=== PATIENT | male | born 1960 | race Caucasian/White ===

== ENCOUNTER 2019-01-23 19:56 | Inpatient (IN) | payer SELFPAY ==
[2019-01-23] MEDS ORDERED: Nicotine 14 MG PATCH TOP SCH (20:45)
[2019-01-23] MEDS ORDERED: Albuterol Sulfate 2.5 mg/3 ml Neb NEB PRN (23:31)
[2019-01-23] MEDS ORDERED: Albuterol Sulfate 2.5 mg/3 ml Neb ONE (23:36)
[2019-01-24 02:30] VITALS: BMI 28.3
[2019-01-24] MEDS ORDERED: Acetaminophen 325 MG TAB PO PRN (07:17)
[2019-01-24] MEDS ORDERED: HYDROcodone/Acetaminophen 7.5/325 mg Tablet PO PRN (07:17)
[2019-01-24] MEDS ORDERED: Ondansetron PF 4 MG/2 ML Vial IVP PRN (07:17)
[2019-01-24] MEDS ORDERED: Bisacodyl 5 MG TAB PO PRN (07:17)
[2019-01-24] MEDS ORDERED: Bisacodyl 10 MG SUPP PR PRN (07:17)
[2019-01-24] MEDS ORDERED: Calcium Carbonate 500 MG ChewTAB PO PRN (07:17)
[2019-01-24] MEDS ORDERED: HYDROcodone/Acetaminophen 5/325 mg Tablet PO PRN (07:17)
[2019-01-24] MEDS ORDERED: Ondansetron ODT 4 MG TAB PO PRN (07:17)
--- NOTE | 2019-01-24 08:34 | ULT ---
BILATERAL CAROTID DUPLEX ULTRASOUND: HISTORY: CVA TECHNIQUE: Grayscale, color-flow and spectral Doppler ultrasound imaging of the extracranial carotid artery syst ems was performed bilaterally. FINDINGS: Mild plaque formation. The peak systolic velocity in the right ICA measures 66 cm/s. The peak systolic velocity in the left ICA measures 57 cm/s. Vertebral flow: antegrade, bilaterally. IMPRESSION: No hemodynamically significant stenosis of Both ICAs.
[2019-01-24] MEDS: Famotidine 20 MG TAB PO SCH ×2 (08:36→20:06)
[2019-01-24] MEDS ORDERED: FLU VACC QS2019-20(6MOS UP)/PF 60 MCG/0.5 ML SYRINGE IM ONE (09:00)
--- NOTE | 2019-01-24 11:50 | MRI ---
MRI BRAIN WITH AND WITHOUT CONTRAST: INDICATIONS: Abnormal CT. Dysarthria. CT revealed abnormal white matter hypointensities, atypical for this aged patient. FINDINGS: The ventricles have normal size and position. There are diffuse white matter hyperintensities seen in the periventricular and deep white matter on FLAIR and T2 sequences. Some of these lesions are prominent with one in the left subcortical frontal lobe, measuring up to 1.7 cm. Paraventricular lesions are somewhat confluent with numerous other scat tered white matter hyperintensities. On the T1, many of these lesions show low signal, which would suggest a more chronic process. On T1 post contrast there is peripheral enhancement of the larger lesion in the left cerebral hemisph ere. Diffusion weighted images show T2 shine-through on most of these lesions. There may be some mild restricted diffusion peripherally of the larger lesion in the left cerebral hemisphere. IMPRESSION: Diffuse white matter abnormality. Peripheral enhancement is seen in the larger lesion in the left cer ebral hemisphere. T1 images suggest chronic lesions. A demyelinating process would be suspected. Mult iple sclerosis is favored, although unusual that this has not been previously diagnosed in a 58-year- old patient. Recommend neurologic consultation. Other demyelinating processes must be considered. PHOEN[place] M (acute disseminated encephalomyelitis) is a consideration if there is a history of a recent viral i nfection or vaccination. Infectious etiologies such as Lyme disease are considerations. If the patien t is immunocompromised other considerations such as PML (progressive multifocal leukoencephalopathy) might be considered. POS: [facility]
[2019-01-24] MEDS ORDERED: Labetalol HCl 100 MG/20 ML VIAL SLOW IVP PRN (13:18)
[2019-01-24] MEDS ORDERED: Docusate 100 MG CAP PO PRN (13:18)
[2019-01-24] MEDS ORDERED: hydrALAZINE 20 MG/ML VIAL SLOW IVP PRN (13:18)
[2019-01-24] MEDS ORDERED: diphenhydrAMINE 25 MG CAP PO PRN (13:18)
[2019-01-24] MEDS ORDERED: Benzonatate 100 MG CAP PO PRN (13:18)
[2019-01-24] MEDS ORDERED: Lisinopril 5 MG TAB PO SCH (13:30)
[2019-01-24] MEDS ORDERED: Amlodipine 5 MG TAB PO SCH (13:45)
[2019-01-24 14:29] LABS: Hemoglobin A1c 5.3 % (4.0-6.0)
--- NOTE | 2019-01-24 15:54 | CT ---
CT OF CHEST NONCONTRAST: 01/24/19 INDICATIONS: Short of breath with cough. FINDINGS: No evidence of lobar consolidation, pleural effusion, or pneumothorax. There regional soft tissues in cluding vasculature and lymph nodes are incompletely assessed on the basis of noncontrast technique. There is ectasia of the thoracic aorta near the junction of the ascending thoracic aorta and the arch . There is mild vascular calcification. Incidental note of peripherally calcified cholelithiasis wit hin a contracted gallbladder. Scattered osseous degenerative changes are present. IMPRESSION: 1. No focal consolidation. 2. Incidental note of cholelithiasis. 3. Ectasia of the thoracic aorta near the junction of the ascending thoracic aorta and the aorti c arch, with luminal diameter of approximately 3.6 cm. POS: C
[2019-01-24] MEDS ORDERED: predniSONE 20 MG TAB PO SCH (17:00)
--- NOTE | 2019-01-24 17:19 | PDOC.HHP ---
Hospitalist HPI - History of Present Illness Trouble talking History of Present Illness: 58-year-old gentleman with no known past medical history who has not seen a doctor in greater than 10 years presents with one week of worsening dysarthria. Patient initially presenting to hospital with one week of worsening trouble speaking, was transferred to [facility] on 01/24 for higher level of care. Patient was CT scan of the brain that demonstrates multiple indeterminate lesions, recommending MRI with and without contrast for further evaluation. I find the patient on the medical unit with telemetry in the stroke unit. Patient is sitting upright in bed he is in no apparent distress. Patient is breathing well on room air. Patient with malignant hypertension with blood pressure greater than 200 systolic on arrival. Patient states that he is smoked one pack of cigarettes to 1 1/2 pack of cigarettes per day since he was 14 years old. Patient going through severe life stressors with his girlfriend dying one week ago from complications of COPD. Patient has no known past medical history as he does not follow up with doctors. Patient has been taking some of his girlfriend COPD medications including nebulizer treatments as needed for shortness of breath. Patient is having some audible wheezing without the stethoscope. Patient has been coughing with green productive sputum. Patient denies fever chills. Patient denies palpitations. Patient denies chest pain. Patient does have anxiety and situational stress with his current illness which is exacerbated by the of his girlfriend only seven days ago. Patient admitted to medical unit with telemetry. MRI of the brain ordered this a.m. Neurology consultation requested for further recommendations. Metabolic workup and further evaluation pending. With patient's extensive smoking history a CT scan of the chest is warranted by the [place] preventative task force to evaluate for lung cancer. Hospitalist ROS - Review of Systems All other systems reviewed; all pertinent +/- noted in HPI/Subj - Medication Medications: Active Medications Generic Name Dose Route Start Last Admin Trade Name Freq PRN Reason Stop Dose Admin Albuterol Sulfate 2.5 mg 01/23/19 23:31 01/24/19 07:14 Ventolin NEB 2.5 mg Q6H PRN Administration Wheezing Albuterol/Ipratropium 3 ml 01/24/19 13:18 01/24/19 15:20 Duoneb NEB 3 ml [id number] PRN Administration SOB &/or Wheezing Famotidine 20 mg 01/24/19 09:00 01/24/19 08:36 Pepcid PO 20 mg BID MATEUSZ Administration Nicotine 14 mg 01/23/19 20:45 01/24/19 02:09 Nicoderm Patch TOP 01/24/19 20:44 Not Given NOW MATEUSZ Sodium Chloride 10 ml 01/24/19 09:00 01/24/19 08:37 Flush - Normal Saline IVF 10 ml Q12HR MATEUSZ Administration Hospitalist History - Past Medical History Source: patient Cardiac: reports: no pertinent history Pulmonary: reports: no pertinent history (Has not seen a physician in over 10 years) [employer]: reports: no pertinent history Gastrointestinal: reports: no pertinent history Heme/Onc: reports: no pertinent history Hepatobiliary: reports: no pertinent history Psych: reports: no pertinent history Musculoskeletal: reports: no pertinent history Rheumatologic: reports: no pertinent history Infectious Disease: reports: no pertinent history ENT: reports: no pertinent history Renal/: reports: no pertinent history Endocrine: reports: no pertinent history Dermatology: reports: no pertinent history - Past Surgical History Past Surgical History: reports: no pertinent history - Family History Family History: reports: hypertension - Social History Smoking Status: Current every day smoker Tobacco Type: cigarettes Alcohol: reports: Occassional Drugs: reports: none Living Situation: Alone Domestic Violence: Negative Activity level: independent ambulation - Exam General Appearance: NAD, awake alert Eye: PERRL, anicteric sclera ENT: normocephalic atraumatic, moist mucosa Neck: supple, symmetric, no lymphadenopathy Heart: RRR, no murmur, no gallops, no rubs Respiratory: no rales, normal chest expansion, no tachypnea, rhonchi, wheezes Gastrointestinal: soft, non-tender, non-distended, normal bowel sounds, no guarding, no rigidity Extremities: no edema Skin: no lesions, no rashes Neurological: cranial nerve grossly intact, normal sensation to touch, no weakness, speech deficit (Dysarthria and stutering, mild) Musculoskeletal: normal strength, no muscle wasting Psychiatric: normal affect, A&O x 3 Hospitalist Results - Radiology Interpretation MRI - head Status: image reviewed by me CT scan - chest Status: image reviewed by dc Hospitalist H&P A/P - Problem (1) Dysarthria Code(s): R47.1 - DYSARTHRIA AND ANARTHRIA Status: Acute (2) White matter abnormality on MRI of brain Code(s): R90.82 - WHITE MATTER DISEASE, UNSPECIFIED Status: Acute (3) Hypertensive emergency Code(s): I16.1 - HYPERTENSIVE EMERGENCY Status: Acute (4) COPD exacerbation Code(s): J44.1 - CHRONIC OBSTRUCTIVE PULMONARY DISEASE W (ACUTE) EXACERBATION Status: Acute (5) Shortness of breath Code(s): R06.02 - SHORTNESS OF BREATH Status: Acute (6) Cough Code(s): R05 - COUGH Status: Acute - Plan Plan: Plan plan: admit to medical unit with telemetry neurology consultation, recommendations appreciated MRI the brain noted for diffuse white matter abnormalities that may be seen in demyelinating disease versus less likely curyung versus may be secondary to uncontrolled hypertension over a long period of time patient's neurologic exam is otherwise benign without focal deficits CT scan of the chest negative for acute focal pneumonia, patient with extensive tobacco history was warranting evaluation to rule out malignancy. [place] preventative task force recommends anyone with greater than 25 pack year history a spiral CT scan to rule out lung cancer. Patient with cough with productive green sputum and wheezing. COPD with acute exacerbation start IV steroids and antibiotics for community acquired organisms associated with COPD metabolic workup including TSH, fasting lipid panel, and hemoglobin A1c is the patient does not seen a physician in over 10 years Start lisinopril and amlodipine for hypertensive emergency PRN medications for blood pressure control intravenously patient going through severe stress or with the of his girlfriend roughly 7 days ago, anxiolytic medications available consider depression therapy
[2019-01-24] MEDS ORDERED: Amlodipine 10 MG TAB PO SCH (17:30)
[2019-01-24] MEDS ORDERED: Lisinopril 10 MG TAB PO SCH (17:30)
[2019-01-24] MEDS ORDERED: hydrOXYzine 25 MG TAB PO PRN (17:33)
[2019-01-24] MEDS ORDERED: Lorazepam 0.5 MG TAB PO PRN (17:34)
[2019-01-24] MEDS ORDERED: cefTRIAXone\\ROCEPHIN 2 GM in Sodium Chloride 0.9% 100 ML IVPB SCH (18:00)
[2019-01-24] MEDS ORDERED: Azithromycin 500 MG in Sodium Chloride 0.9% 250 ML 250 ML IVPB SCH (18:00)
--- NOTE | 2019-01-24 21:31 | CON ---
DATE OF CONSULTATION: 01/24/2019 CONSULTING PHYSICIAN: Hospitalist Service. IMPRESSION: Multiple sclerosis. PLAN: 1. Prednisone taper. 2. Office followup to establish long-term treatment. HISTORY OF PRESENT ILLNESS: Mr. Mckinney is a 58-year-old man with a known history of hypertension. He came in when he developed some slurred speech about a week ago. His MRI subsequently revealed evidence of fairly extensive periventricular white matter lesions. He has several black holes. He also had an area of acute inflammation involving the left posterior parietal region which enhanced with gadolinium. 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 He denies any transient monocular vision loss. He has never had any lateralized weakness or numbness. He grew up in [place]. PAST MEDICAL HISTORY: Hypertension. ALLERGIES: NONE REPORTED. SOCIAL HISTORY: Positive for tobacco. FAMILY HISTORY: Noncontributory. REVIEW OF SYSTEMS: Ten-system review of systems is otherwise negative. PHYSICAL EXAMINATION: GENERAL: He is a reasonably well-nourished, middle-aged man, in no distress. VITAL SIGNS: Have been stable. He is afebrile. HEENT: Pupils are equal. Conjunctivae are clear. Oropharynx is clear. NECK: Supple. EXTREMITIES: No cyanosis or edema. NEUROLOGIC: He is alert and appropriate. His speech is fluent and clear. Cranial nerves 2 through 12 are intact. Motor exam shows good strength bilaterally. Cerebellar testing shows normal [id number] and rapid alternating movements. Sensation is intact to touch. He can walk independently without any significant difficulties. SUMMARY: A 58-year-old man who presented with some dysarthria and has a remarkably abnormal MRI of the brain. He likely has had multiple sclerosis for 10 years or more, but for some reason was never symptomatic. His dysarthria should clear up shortly with some steroids I would predict. Plan to get him started on Rebif which can be obtained free for patients in an indigent situation that like he is in. Job ID: [id number]
[2019-01-25 06:05] LABS: #Lymphocytes 1.1 thou/uL (1.20-3.40); #Monocytes 0.4 thou/uL (0.11-0.59); #Neutrophils 8.2 thou/uL (1.40-6.50); %Basophils 0.3 % (0.0-1.0); %Eosinophils 0.3 % (0.0-10.0); %Lymphocytes 11.5 % (21.0-51.0); %Monocytes 3.8 % (0.0-10.0); %Neutrophils 84.1 % (42.0-75.0); Hemoglobin 15.3 g/dL (14.0-18.0); Mean Corpuscular HGB CONC 34.7 g/dL (32.0-36.0); Mean Corpuscular Hemoglobin 31.3 pg (27.0-31.0); Mean Corpuscular Volume 90.4 fL (78.0-98.0); Mean Platelet Volume 6.5 fL (7.4-10.4); Platelet Count 312 thou/uL (130-400); RBC Distribution Width 11.7 % (11.5-14.5); Red Blood Cell (RBC) Count 4.87 mill/uL (4.70-6.10); White Blood Cell (WBC) Count 9.7 thou/uL (4.8-10.8)
[2019-01-25 06:24] LABS: Anion Gap 12 mmol/L (10-20); BUN (Urea Nitrogen) 11 mg/dL (8.4-25.7); Calc. Creatinine Clearance 120 mL/min (70-130); Carbon Dioxide 22 mmol/L (22-29); Cardiac Risk 3.4 (Less than 4.5); Chloride 104 mmol/L (98-107); Cholesterol 153 mg/dl (< 200 Desired); Estimated GFR-MDRD 87; Glucose 156 mg/dL (70-105); HDL Cholesterol 45 mg/dL (>60 Neg Risk); LDL Cholesterol, Calculated 96 mg/dL; Sodium 134 mmol/L (136-145); Triglycerides 60 mg/dL (Less than 150)
[2019-01-25] MEDS: Famotidine 20 MG TAB PO SCH (08:52)
[2019-01-25] MEDS ORDERED: methylPREDNISolone Sod Succ 40 MG VIAL IVP SCH (09:00)
[2019-01-25] MEDS ORDERED: Amlodipine 5 MG TAB PO SCH (09:00)
[2019-01-25] MEDS ORDERED: Nicotine 21 MG PATCH TD SCH (09:00)
[2019-01-25] MEDS ORDERED: Lisinopril 5 MG TAB PO SCH (09:00)
[2019-01-25] MEDS ORDERED: predniSONE 20 MG TAB PO SCH (09:00)
[2019-01-25 12:06] VITALS: BP 127/85; TEMP 98.3
--- NOTE | 2019-01-25 23:51 | DIS ---
DATE OF ADMISSION: 01/23/2019 DATE OF DISCHARGE: 01/25/2019 REASON FOR HOSPITALIZATION: Trouble speaking. SIGNIFICANT FINDINGS: The patient was found to have significant white matter changes of the brain concerning for multiple sclerosis. PROCEDURES PERFORMED AND TREATMENTS RENDERED: The patient was seen and evaluated by Neurology, please see full consultation note for details. The patient was started on steroid therapy appropriately by Neurology with good improvement of symptoms. CONDITION ON DISCHARGE: Stable. SPECIFIC INSTRUCTIONS FOR THE PATIENT/FAMILY: 1. The patient is recommended to take all medications as directed, to be re-evaluated by primary care physician and Neurology in the outpatient clinic in the next 5 to 7 days. 2. The patient is recommended to follow up with primary care physician in the next 5 to 7 days. 3. The patient is recommended to follow up with Neurology in the next 1 to 2 weeks. 4. The patient is recommended to return to acute care hospital immediately if signs or symptoms return, worsen, or any other new symptoms occur. DISCHARGE MEDICATIONS: 1. Prednisone 10 mg with a taper, 40 mg daily for 3 days, then 30 mg daily for 3 days, then 20 mg daily for 3 days, then 10 mg daily for 3 days, then stop. 2. Nicotine transdermal patch 21 mg transdermal daily. 3. Lisinopril 5 mg one tablet p.o. daily. 4. DuoNeb therapy 4 times per day p.r.n. shortness of breath. 5. Azithromycin 250 mg p.o. daily for four additional days. 6. Amlodipine 5 mg one tablet p.o. daily. 7. Albuterol sulfate HFA rescue inhaler hand-held two puffs p.o. q.4 hours p.r.n. shortness of breath. HOSPITAL COURSE: Mr. Mckinney is a pleasant 58-year-old gentleman, who presented to [facility] on 01/23/2019 with trouble speaking. Please see full history and physical for full details. The patient with trouble speaking. There was concern for cerebrovascular accident and the patient underwent MRI of the brain, please see full MRI brain report for details. MRI with signs concerning for white matter changes that may be explained by multiple sclerosis, demyelinating process, acute disseminated encephalomyelitis, or even progressive multifocal leukoencephalopathy are considered. Neurology recommending that the patient has likely had multiple sclerosis for greater than 10 years and he recommended steroid therapy. Neurology recommending that the patient even without insurance may be a candidate for medication Rebif, which can be obtained free to some indigent patients with his help. Neurology recommending the patient safe for discharge with close followup in the outpatient setting. The patient with greater than 40 pack year history of smoking 1 to 1-1/2 packs of cigarettes a day since he was 14 years old. I was concerned that the patient was at risk for lung cancer and ordered a CT scan of the chest, please see full report for details, there is no acute cardiothoracic pathology and there were no suspicious lesions concerning for malignancy. Otherwise, workup was benign including a normal metabolic workup. The patient was found to have malignant hypertension and he was started on medications for blood pressure control and recommended to keep a blood pressure log and that these medications may need to go up or down in the upcoming weeks per his primary care physician. The patient also complaining of symptoms consistent with COPD exacerbation and I started him on breathing treatments and steroids in addition to oral antibiotics. With maximum medical therapy, the patient did have a more rapid than expected recovery. The patient is going through severe social life stressor as his girlfriend just roughly 1 week ago. 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 I instructed the patient that his echocardiogram was still pending and if this test was severely abnormal, he would return to the hospital for re-evaluation and the patient acknowledges this and states that he will comply with recommended returning to the hospital if needed for a severely abnormal echocardiogram. I sent the patient's prescriptions to his preferred pharmacy. The patient recommended safe for discharge with close followup in the outpatient clinic with primary care physician and Neurology in the next 1 to 2 weeks. The patient is recommended to take all medications as directed, to be re-evaluated by primary care physician and Neurology in the next 1 to 2 weeks. The patient is recommended to return to acute care hospital immediately if signs or symptoms return, worsen, or any other new symptoms occur. Greater than 36 minutes spent coordinating care and discharge process for this patient. Job ID: [id number]
[2019-01-26] MEDS ORDERED: predniSONE 20 MG TAB PO SCH (09:00)
[2019-01-28] MEDS ORDERED: predniSONE 20 MG TAB PO SCH (09:00)
== END 2019-01-25 14:06 | disposition home or self-care (01) | DRG 59 ==
LOC: ERS 19:56 → OBSVTOIN 20:15 → 2SE 20:15
PROVIDERS: ADMIT Hospitalist; ATTEND Hospitalist
DX: G35 Multiple sclerosis (principal); I16.1 Hypertensive emergency; J44.1 Chronic obstructive pulmonary disease with (acute) exacerbation; R29.701 NIHSS score 1; I10 Essential (primary) hypertension; F17.210 Nicotine dependence, cigarettes, uncomplicated; F41.9 Anxiety disorder, unspecified; Z79.899 Other long term (current) drug therapy
CPT/HCPCS: 36415; 70553; 71250; 80048; 80061; 83036; 84443; 85025; 90471; 90686; 90732; 93306; 93880; 94640; G0008; G0009; J0456; J0696; J3490; J7050; J7512; J7611; J7620

== ENCOUNTER 2021-10-24 20:07 | Inpatient (IN) | payer SELFPAY ==
[2021-10-24 21:56] LABS: Hemoglobin 15.6 g/dL (14.0-18.0); Mean Corpuscular HGB CONC 33.8 g/dL (32.0-36.0); Mean Corpuscular Hemoglobin 31.3 pg (27.0-31.0); Mean Corpuscular Volume 92.6 fL (78.0-98.0); Mean Platelet Volume 6.5 fL (7.4-10.4); Platelet Count 295 thou/uL (130-400); RBC Distribution Width 12.9 % (11.5-14.5)
[2021-10-24 22:14] LABS: ALT (SGPT) 15 U/L (8-55); AST (SGOT) 15 U/L (5-34); Albumin 3.8 g/dL (3.4-4.8); Alkaline Phosphatase 80 U/L (40-110); Anion Gap 14 mmol/L (10-20); BUN (Urea Nitrogen) 13 mg/dL (8.4-25.7); Calc. Creatinine Clearance 0 mL/min (70-130); Calcium 8.9 mg/dL (7.8-10.44); Carbon Dioxide 22 mmol/L (23-31); Chloride 98 mmol/L (98-107); Estimated GFR 98; Globulin 3.5 g/dL (2.4-3.5); Glucose 124 mg/dL (80-115); Lipase 12 U/L (8-78); Potassium 3.7 mmol/L (3.5-5.1); Protein, Total 7.3 g/dL (5.8-8.1); Sodium 130 mmol/L (136-145)
[2021-10-24 22:33] LABS: Band 7 % (5-11); Differential Comment Immature Cell(s); Lymphocytes 6 % (21-51); MDiff Complete? YES; Monocytes 9 % (0-10); Neutrophil 75 % (42-75); Platelet Morphology Comment Appears Adequate; RBC Morphology Normal; Reflex for Review?? YES; White Blood Cell (WBC) Count 26.7 thou/uL (4.8-10.8)
[2021-10-24] MEDS ORDERED: Morphine 4 MG/ML VIAL ONE (23:25)
[2021-10-25 00:38] LABS: SARS-CoV-2 NAA Rapid Test Not Detected (NotDetected)
[2021-10-25 01:28] VITALS: BMI 30.2
[2021-10-25] MEDS ORDERED: Ketorolac Tromethamine 30 MG/ML VIAL IVP PRN ×2 (02:18→02:22)
[2021-10-25] MEDS ORDERED: Ondansetron PF 4 MG/2 ML Vial IVP PRN (02:18)
[2021-10-25] MEDS ORDERED: Morphine 2 MG/ML VIAL SLOW IVP PRN (02:18)
[2021-10-25] MEDS ORDERED: Morphine 4 MG/ML VIAL SLOW IVP PRN (02:18)
[2021-10-25] MEDS ORDERED: Pantoprazole 40 MG VIAL IVP SCH ×2 (02:30→09:00)
[2021-10-25] MEDS ORDERED: Sodium Chloride 0.9% 1,000 ML IV SCH (02:30)
[2021-10-25] MEDS: D5 1/2 NS w/20 mEq KCL 1,000 ML IV SCH ×3 (02:43→17:11)
[2021-10-25] MEDS: cefOXitin 2 GM in Sodium Chloride 0.9% 100 ML IVPB SCH ×2 (02:57→11:25)
[2021-10-25 03:19] LABS: Lactic Acid 2.1 mmol/L (0.5-2.2)
[2021-10-25] MEDS ORDERED: Ipratropium Bromide 2.5 ml Neb NEB PRN (03:35)
[2021-10-25] MEDS ORDERED: Labetalol HCl 100 MG/20 ML VIAL SLOW IVP PRN (03:38)
[2021-10-25] MEDS ORDERED: Nicotine 21 MG PATCH TD SCH (04:00)
[2021-10-25 04:51] LABS: #Lymphocytes 1.2 thou/uL (1.20-3.40); #Monocytes 0.6 thou/uL (0.11-0.59); #Neutrophils 15.5 thou/uL (1.40-6.50); %Eosinophils 0.1 % (0.0-10.0); %Monocytes 3.3 % (0.0-10.0); %Neutrophils 89.7 % (42.0-75.0); Hemoglobin 14.1 g/dL (14.0-18.0); Mean Corpuscular HGB CONC 33.8 g/dL (32.0-36.0); Mean Corpuscular Hemoglobin 31.5 pg (27.0-31.0); Mean Corpuscular Volume 93.2 fL (78.0-98.0); Mean Platelet Volume 6.2 fL (7.4-10.4); Platelet Count 219 thou/uL (130-400); RBC Distribution Width 12.8 % (11.5-14.5); Red Blood Cell (RBC) Count 4.47 mill/uL (4.70-6.10); White Blood Cell (WBC) Count 17.2 thou/uL (4.8-10.8)
[2021-10-25 05:44] LABS: Anion Gap 13 mmol/L (10-20); BUN (Urea Nitrogen) 10 mg/dL (8.4-25.7); Calc. Creatinine Clearance 133 mL/min (70-130); Calcium 8.1 mg/dL (7.8-10.44); Carbon Dioxide 20 mmol/L (23-31); Chloride 104 mmol/L (98-107); Estimated GFR 100; Glucose 115 mg/dL (80-115); Potassium 3.9 mmol/L (3.5-5.1); Sodium 133 mmol/L (136-145)
[2021-10-25] MEDS ORDERED: cefOXitin 2 GM in Sodium Chloride 0.9% 100 ML IVPB SCH (06:00)
[2021-10-25 06:44] LABS: Bilirubin Negative (Negative); Blood, Urine Negative (Negative); Clarity Clear (Clear); Glucose, Urine (Dipstick) Normal (Negative); Ketone, Urine Negative (Negative); Leukocyte 25 Leu/uL (Negative); Nitrite Negative (Negative); Protein, Urine (Dipstick) 30 mg/dL (Neg-Trace); RBC/HPF 0-3 HPF (0-3); Specific Gravity, Urine 1.018 (1.002-1.036); Squamous Epithelial 0-3 HPF (0-3); Urobilinogen Normal mg/dL (Less than 2); WBC/HPF 0-3 HPF (0-3)
[2021-10-25 06:48] LABS: Bacteria/HPF Rare-Few HPF (None Seen); Sperm/HPF 1+ HPF (None Seen)
[2021-10-25] MEDS ORDERED: Sodium Chloride For Inhalation 0.9% 3 ML NEB NEB SCH (07:00)
[2021-10-25] MEDS ORDERED: Levalbuterol HCl 1.25 MG/0.5 ML NEB NEB SCH (07:00)
[2021-10-25] MEDS: Ipratropium Bromide 2.5 ml Neb NEB SCH ×3 (08:00→18:46)
[2021-10-25] MEDS ORDERED: Electrolyte Replacement Protocol 1 EACH FS SCH (08:30)
[2021-10-25 08:54] LABS: Phosphorus 1.4 mg/dL (2.3-4.7)
[2021-10-25] MEDS ORDERED: Amlodipine 10 MG TAB PO SCH (09:00)
[2021-10-25] MEDS ORDERED: FLUoxetine HCl 10 MG CAP PO SCH (09:00)
[2021-10-25] MEDS: Magnesium 2 GM/50 ML(in water) 2 GM in Premix Bag 1 BAG IVPB SCH ×2 (09:36→14:09)
[2021-10-25] MEDS ORDERED: Ketorolac Tromethamine 30 MG/ML VIAL IVP SCH (09:45)
[2021-10-25] MEDS ORDERED: Acetaminophen 500 MG TAB PO SCH (09:45)
[2021-10-25] MEDS ORDERED: Acetaminophen 500 MG TAB PO PRN (09:45)
[2021-10-25] MEDS ORDERED: HYDROmorphone 0.5 MG/0.5 ML SYRINGE ONE (11:38)
[2021-10-25] MEDS ORDERED: fentaNYL Citrate/PF 100 MCG/2 ML SYRINGE ONE (11:38)
[2021-10-25] MEDS ORDERED: Lidocaine 1% w/Epinephrine 1:100K 20 ML VIAL ONE (11:45)
[2021-10-25] MEDS ORDERED: Bupivacaine PF 0.5% 30 ML VIAL ONE (11:45)
[2021-10-25] MEDS ORDERED: HYDROcodone/Acetaminophen 5/325 mg Tablet PO PRN (11:49)
[2021-10-25] MEDS ORDERED: Ondansetron PF 4 MG/2 ML Vial ONE (11:58)
[2021-10-25] MEDS ORDERED: Dexamethasone 20 MG/5 ML VIAL ONE (11:58)
[2021-10-25] MEDS ORDERED: Lidocaine 1% PF 5 ML VIAL ONE (11:58)
[2021-10-25] MEDS ORDERED: Glycopyrrolate 0.2 MG/ML 5 ML SYRINGE ONE (11:58)
[2021-10-25] MEDS ORDERED: PROPOFOL 200 MG/20 ML VIAL ONE (11:58)
[2021-10-25] MEDS ORDERED: Rocuronium Bromide 10 MG/ML (10ML VIAL) ONE (11:58)
[2021-10-25] MEDS ORDERED: Ketorolac Tromethamine 30 MG/ML VIAL ONE (11:58)
[2021-10-25] MEDS ORDERED: Ibuprofen 600 MG TAB PO PRN (13:00)
[2021-10-25] MEDS ORDERED: Promethazine HCl 25 MG/ML VIAL IVPB PRN (13:15)
[2021-10-25] MEDS ORDERED: Promethazine HCl 25 MG/ML VIAL IM PRN (13:15)
[2021-10-25] MEDS ORDERED: Ondansetron HCl/PF 4 MG/2 ML Vial IVP PRN (13:15)
[2021-10-25] MEDS ORDERED: Levofloxacin 500 mg/D5W 100 ml Premix Bag ONE (13:28)
[2021-10-25] MEDS: PHOS-NAK 1 PKT PACK PO SCH ×3 (14:10→17:11)
[2021-10-25 17:12] VITALS: BP 137/74; TEMP 97.6
[2021-10-25] MEDS ORDERED: Enoxaparin Sodium 40 MG/0.4 ML SYRINGE SC SCH (21:00)
[2021-10-26] MEDS ORDERED: Polyethylene Glycol 3350 17 GM Packet PO SCH (09:00)
== END 2021-10-25 18:55 | disposition home or self-care (01) | DRG 854 ==
LOC: ERS 20:07 → 2SW 10-25 00:08
PROVIDERS: ADMIT Specialist; ATTEND Surgery
PROC: 0FT44ZZ Resection of Gallbladder, Percutaneous Endoscopic Approach (ICD-10-PCS; principal; 2021-10-25)
PROC: 3E03329 Introduction of Other Anti-infective into Peripheral Vein, Percutaneous Approach (ICD-10-PCS; 2021-10-25)
DX: A41.9 Sepsis, unspecified organism (principal); K80.00 Calculus of gallbladder with acute cholecystitis without obstruction; E87.1 Hypo-osmolality and hyponatremia; Z20.822 Contact with and (suspected) exposure to COVID-19; J44.9 Chronic obstructive pulmonary disease, unspecified; G51.0 Bell's palsy; F32.A Depression, unspecified; F17.210 Nicotine dependence, cigarettes, uncomplicated; I10 Essential (primary) hypertension; K59.09 Other constipation; Z82.49 Family history of ischemic heart disease and other diseases of the circulatory system; Z83.3 Family history of diabetes mellitus; Z79.899 Other long term (current) drug therapy
CPT/HCPCS: 36415; 36416; 71045; 76705; 80048; 80053; 81003; 81015; 83605; 83690; 83735; 84100; 84145; 85025; 85060; 87040; 87077; 87149; 87186; 88304; 93005; 93010; 94640; 96374; C1713; C9113; J0694; J1100; J1170; J1885; J1956; J2270; J2405; J2704; J2710; J3475; J3480; J3490; J7050; J7612; S0020; U0002